=== PATIENT | female | born 1935 | race Caucasian/White ===

== ENCOUNTER 2017-12-10 23:11 | Observation (INO) | payer MEDICARE, OTHER ==
[~2017-12-10] VITALS: Ht 162.6 cm; Wt 51.8 kg
[~2017-12-10 23:11] MED LIST: LORA-447 PO; PANT40TA3 PO; PREG75CA PO; RISE35TA3 PO
[2017-12-10 23:17] VITALS: BP 150/75
--- NOTE | 2017-12-10 23:23 | PCM.EKG ---
[facility] Test Date: 2017-12-10 Test Time: 23:17:06 Pat Name: CLEMENCIA THOMPSON Department: Room: 303 Gender: F Basket Braider: NISREEN : 1935 Requested By: TARYN FARIA Order Number: [id number] Reading MD: Taryn Faria Measurements Intervals [place] Rate: 65 P: 72 UT: 118 QRS: 24 QRSD: 90 T: 48 QT: 398 QTc: 413 Interpretive Statements Normal sinus rhythm Normal ECG No previous ECG available for comparison Electronically Signed On 12-12-2017 7:34:40 CDT by Taryn Faria Please click the below link to view image of tracing.
[2017-12-10] MEDS ORDERED: LIDOCAINE VISCOUS MM STA (23:25)
[2017-12-10] MEDS ORDERED: PROTONIX IV IV STA (23:25)
[2017-12-10] MEDS ORDERED: LIDOCAINE VISCOUS ONE (23:25)
[2017-12-10] MEDS ORDERED: MYLANTA ONE (23:25)
[2017-12-10] MEDS ORDERED: ASPIRIN PO STA (23:25)
[2017-12-10] MEDS ORDERED: MYLANTA PO STA (23:25)
[2017-12-10] MEDS ORDERED: ASPIRIN ONE (23:25)
[2017-12-10] MEDS ORDERED: NS 100ML 100 ML IV ONE (23:28)
[2017-12-10] MEDS ORDERED: PROTONIX IV IV ONE (23:28)
[2017-12-10] MEDS ORDERED: NITROSTAT SL STA (23:28)
[2017-12-10 23:29] LABS: BASOPHIL # 0.1 10^3/uL (0.0-0.1); BASOPHIL % 1.2 % (0.0-0.2); EOSINOPHIL # 0.2 10^3/uL (0.0-0.2); EOSINOPHIL % 2.2 % (0.0-5.0); HEMOGLOBIN 11.9 g/dL (12.0-15.0); LYMPHOCYTES # 2.6 10^3/uL (1.0-4.8); LYMPHOCYTES % 33.5 % (24.0-44.0); MEAN CELL HGB 30.7 pg (26-34); MEAN CELL HGB CONCENTRATION 32.5 g/dL (33-37); MEAN CORP VOLUME 94.3 fL (78-100); MEAN PLATELET VOLUME 12.3 fL (7.8-11.0); MONOCYTES # 0.8 10^3/uL (0.3-0.8); MONOCYTES % 9.9 % (5.0-12.0); NEUTROPHIL # 4.2 10^3/uL (1.8-7.7); NEUTROPHILS % 53.1 % (41.0-85.0); RED CELL DISTRIBUTION WIDTH 12.4 % (11.5-14.5); WHITE BLOOD CELL 7.8 10^3/uL (4.5-11.0)
--- NOTE | 2017-12-10 23:54 | NUR ---
ARRIVAL PATIENT TO ROOM 8, CHIEF COMPLAINT OF CHEST PAIN, DENIES ANY MEDICAL HYSTERY, TAKES ATIVAN FOR ANXIETY, AND LYRICA FOR NERVE PAIN POST BACK SURGERY. STATED THAT CHEST PAIN WAS STABBING TO NURSE, DENIED STABBING CHEST PAIN TO DOCTOR, REPORTED HEAVINESS INSTEAD. ASSESSMENT COMPLETED, PATIENT CONNECTED TO ALL MONITORS, NO S/S OF DISTRESS AT THIS TIME.
[2017-12-11] VITALS (8 sets, daily range): BP systolic 119–137; BP diastolic 58–70
[2017-12-11 00:14] LABS: ALANINE AMINOTRANSFERASE(ML) 20 U/L (12-78); ALKALINE PHOSPHATASE 55 U/L (50-136); ASPARTATE AMINO TRANSFERASE 21 U/L (0-35); CALCIUM 9.2 mg/dL (8.4-10.5); CARBON DIOXIDE 27.6 mmol/L (20.0-32); GLUCOSE 93 mg/dL (70-110)
--- NOTE | 2017-12-11 00:55 | ER.PDOC ---
General Chief Complaint: Chest Pain-Cardiac Nature Stated Complaint: CHEST PAIN Time seen by MD: 23:10 Source: patient, family Exam Limitations: no limitations History of Present Illness Initial Comments pt c/o ant midsternal cp , heavy, since 2129 that is currently 6-7 and 10 at worst asstd w/ sob and sl nausea. Pt took ativan at 2200 and Lyrica 2100 w/o relief. Pt has a hx of HH and recent may 2017 neg cath by her report, but is tx 'd for anxiety and p. neuropathy. Timing/Duration: 1-3 hours Severity/Quality: moderate Radiation: no radiation Activities at Onset: none Prior CP/Workup: Cardiac Cath Modifying Factors: other (none) Nitro Today/Relief: No Nitro Taken Today Aspirin Today: No Aspirin Today Associated Symptoms: nausea/vomiting Prior symptoms/Treatment: Similar symptoms previous, Treated by Doctor Allergies: Coded Allergies: No Known Allergies (Unverified , 05/03/15) Home Meds Reported Medications Pregabalin (LYRICA) 75 Mg Capsule, 75 MG PO HS, CAPSULE 05/03/15 Lorazepam (ATIVAN) 0.5 Mg Tablet, 0.5 MG PO TID, TABLET 05/03/15 Past Medical History Medical History: no pertinent history Surgical History: appendectomy, back, hysterectomy LMP (females 10-50): hysterectomy Social History Smoking: non-smoker Alcohol Use: none Drug Use: none Reviewed Nursing Reviewed: Vital Signs, Abn. Noted, Nursing Assessment Constitutional: no symptoms reported EENTM: no symptoms reported Respiratory: denies cough, denies orthopnea, shortness of breath, denies wheezing Cardiovascular: chest pain, denies edema, denies irregular heart rate, denies lightheadedness, denies syncope Gastrointestinal: denies no symptoms reported, denies see HPI, denies abdomen distended, denies abdominal pain, denies blood streaked bowels, denies constipated, denies diarrhea, denies difficulty swallowing, denies nausea, denies poor appetite, denies poor fluid intake, denies rectal bleeding, denies vomiting, denies other Genitourinary: denies no symptoms reported, denies see HPI, denies burning, denies dysuria, denies discharge, denies frequency, denies flank pain, denies hematuria, denies incontinence, denies pain, denies urgency, denies other Musculoskeletal: denies no symptoms reported, denies see HPI, denies back pain , denies gout, denies joint pain, denies joint swelling, denies muscle pain, denies muscle stiffness, denies neck pain, denies other Skin: denies no symptoms reported, denies see HPI, denies change in color, denies change in hair/nails, denies dryness, denies lesions, denies lumps, denies rash, denies other All Other Systems: Reviewed and Negative Physical Exam General Appearance: No Apparent Distress, WD/WN, Anxious HEENT: PERRL/EOMI, Normal ENT Inspection, TMs Normal, Pharynx Normal Neck: Non-Tender, Full Range of Motion, Supple, Normal Inspection Respiratory: chest non-tender, lungs clear, normal breath sounds, no respiratory distress, no accessory muscle use Cardiovascular: Normal Peripheral Pulses, Regular Rate, Rhythm, No Edema, No Gallop, No JVD, No Murmur Gastrointestinal: Normal Bowel Sounds, No Organomegaly, No Pulsatile Mass, Non Tender, Soft Rectal: Normal Exam Extremities: Normal Range of Motion, Non-Tender, Normal Inspection, No Pedal Edema, No Calf Tenderness, Normal Capillary Refill Neurologic/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 NML as Tested, No Motor/Sensory Deficits, Alert, Normal Mood/Affect, Oriented x 3 Skin: Normal Color, Warm/Dry Results/Orders Results/Orders Laboratory Tests Test 12/10/17 23:20 White Blood Count 7.8 10^3/uL (4.5-11.0) Red Blood Count 3.88 10^6/uL (4.00-5.20) Hemoglobin 11.9 g/dL (12.0-15.0) Hematocrit 36.6 % (36.0-46.0) Mean Corpuscular Volume 94.3 fL (78-100) Mean Corpuscular Hemoglobin 30.7 pg (26-34) Mean Corpuscular Hemoglobin Concent 32.5 g/dL (33-37) Red Cell Distribution Width 12.4 % (11.5-14.5) Platelet Count 199 10^3/uL (150-400) Mean Platelet Volume 12.3 fL (7.8-11.0) Neutrophils (%) (Auto) 53.1 % (41.0-85.0) Lymphocytes (%) (Auto) 33.5 % (24.0-44.0) Monocytes (%) (Auto) 9.9 % (5.0-12.0) Neutrophils # (Auto) 4.2 10^3/uL (1.8-7.7) Lymphocytes # (Auto) 2.6 10^3/uL (1.0-4.8) Monocytes # (Auto) 0.8 10^3/uL (0.3-0.8) Absolute Immature Granulocyte (auto 0.01 10^3 u/L (0-2) Eosinophils % 2.2 % (0.0-5.0) Basophils % 1.2 % (0.0-0.2) Basophils # 0.1 10^3/uL (0.0-0.1) Eosinophil Count 0.2 10^3/uL (0.0-0.2) Prothrombin Time 9.6 SEC (9.8-11.9) Prothrombin Time INR (Non-Therap) 1.0 D-Dimer 0.33 mg/L (0.19-0.49) Sodium Level 141 mmol/L (132-145) Potassium Level 4.0 mmol/L (3.6-5.2) Chloride Level 104.0 mmol/L (96-109) Carbon Dioxide Level 27.6 mmol/L (20.0-32) Anion Gap 13.4 Blood Urea Nitrogen 22 mg/dL (7-18) Creatinine 0.80 mg/dL (0.59-1.40) Estimated GFR () 83.5 (>/=60) BUN/Creatinine Ratio 27.0 Glucose Level 93 mg/dL (70-110) Calcium Level 9.2 mg/dL (8.4-10.5) Total Bilirubin 0.2 mg/dL (0.2-1.0) Aspartate Amino Transf (AST/SGOT) 21 U/L (0-35) Alanine Aminotransferase (ALT/SGPT) 20 U/L (12-78) Alkaline Phosphatase 55 U/L (50-136) Total Creatine Kinase 56 U/L (26-192) Creatine Kinase MB 0.9 ng/mL (0.5-3.6) Troponin I < 0.02 ng/mL (0.00-0.05) Pro-B-Type Natriuretic Peptide 175 pg/mL (0-450) Total Protein 7.0 g/dL (6.4-8.2) Albumin 3.6 g/dL (3.4-5.0) Globulin 3.4 Percent Immature Gran (Cell Imm) 0.10 % (0.00-0.50) Helicobacter pylori Screen NEGATIVE (NEGATIVE) Administered Medications Medications (Trade) Dose Ordered Sig/Darion Route PRN Reason Start Time Stop Time Status Last Admin Dose Admin Aspirin (Aspirin) 325 mg STAT STAT PO 12/10/17 23:25 12/10/17 23:28 DC 12/10/17 23:45 Pantoprazole Sodium (Protonix Iv) 40 mg STAT STAT IV 12/10/17 23:25 12/10/17 23:28 DC 12/10/17 23:44 Lidocaine HCl (Lidocaine Viscous) 15 ml STAT STAT MM 12/10/17 23:25 12/10/17 23:28 DC 12/10/17 23:44 Nitroglycerin (Nitrostat) 0.4 mg STAT STAT SL 12/10/17 23:28 12/10/17 23:31 DC 12/10/17 23:47 Progress Progress pt unsure that GI cocktail or SLN really helped her but she feels btter however isn't pain free. Case disc w/ Dr. Zayas,who will review her cath and call back 0030 EKG/XRAY/CT/US EKG: NSR EKG Comments: nl ekg XRAY: chest XRAY Comments: nad Departure Time of Disposition: 01:10 Disposition: 01 HOME, SELF-CARE Impression: Primary Impression: Chest pain Additional Impressions: Anxiety Hiatal hernia Condition: Stable Referrals: BERNADETTE JIN DIRECTOR [employer] (PCP) PRIMARY CARE PROVIDER Duration or Time Spent with Pa: 45 Problem Qualifiers Primary Impression: Chest pain Chest pain type: unspecified Qualified Codes: R07.9 - Chest pain, unspecified TARYN FARIA MD Dec 11, 2017 00:55
[2017-12-11] MEDS ORDERED: SUBLIMAZE IV STA (01:11)
[2017-12-11] MEDS ORDERED: SUBLIMAZE ONE ×2 (01:19→12:16)
[2017-12-11] MEDS ORDERED: IBAN150T PO (01:51)
--- NOTE | 2017-12-11 01:55 | NUR ---
Patient back from labor operator. GCS 15, no c/o pain, site intact with no concerns. Vitals as recorded.
--- NOTE | 2017-12-11 02:18 | DIREP ---
PROCEDURE:CHEST 1 VIEW COMPARISON:[facility], CR, XRAY CHEST SINGLE VW, 05/03/2015, 10:54 AM. INDICATIONS:CHEST PAIN FINDINGS: LUNGS/PLEURA:No significant pulmonary parenchymal abnormalities. No effusions. VASCULATURE:Normal. Unremarkable pulmonary vasculature. CARDIAC:Normal. No cardiac silhouette abnormality or cardiomegaly. Mildly tortuous aorta. MEDIASTINUM:Normal. No visible mass or adenopathy. BONES:Normal. No fracture or visible bony lesion. OTHER:Negative. CONCLUSION:No acute cardiopulmonary abnormalities. Dictated by: Tayo Villegas M.D. on 12/11/2017 at 02:17 AM
--- NOTE | 2017-12-11 05:08 | PCM.EKG ---
[facility] Test Date: 2017-12-11 Test Time: 05:10:37 Pat Name: CLEMENCIA THOMPSON Department: Room: 303 Gender: F Tool Or Die Drawing Checker: NISREEN : 1935 Requested By: TARYN FARIA Order Number: [id number] Reading MD: Mansi Zayas Measurements Intervals [place] Rate: 65 P: 57 MD: 142 QRS: 22 QRSD: 96 T: 43 QT: 398 QTc: 413 Interpretive Statements Normal sinus rhythm Normal ECG No previous ECG available for comparison Electronically Signed On 12-12-2017 10:52:14 CDT by Mansi Zayas Please click the below link to view image of tracing.
[2017-12-11] MEDS ORDERED: ZOFRAN IV PRN (08:00)
[2017-12-11] MEDS ORDERED: TYLENOL PO PRN (08:00)
--- NOTE | 2017-12-11 08:17 | NUR ---
Patient up in room doing am cares per self with spouse in room. Denies pain at this time. States she would prefer to take her scheduled Ativan at 10am.
[2017-12-11] MEDS: ATIVAN PO SCH ×2 (09:00→15:58)
--- NOTE | 2017-12-11 09:15 | NUR ---
DISCHARGE PLAN CM VISITED WITH PATIENT ABOUT DISCHARGE PLAN AND NEEDS. PATIENT LIVES AT HOME WITH HER AND IS INDEPENDENT WITH ALL ADL'S. SHE DENIES NEED FOR ANY DME, O2, OR HOME HEALTH AT THIS TIME. DISCHARGE GOAL IS TO DISCHARGE HOME WITH HER . WILL CONTINUE TO FOLLOW DISCHARGE NEEDS.
--- NOTE | 2017-12-11 10:26 | NUR ---
Patient gave self her own Ativan. Dr Enriquez aware and states okay for patient to give self on home med while still OBS. Also patient states she is unable to take the generic brand of Ativan which was her reason for taking her own med.
[2017-12-11] MEDS ORDERED: VERSED ONE (12:16)
[2017-12-11] MEDS ORDERED: XYLOCAINE ONE (12:16)
[2017-12-11] MEDS ORDERED: NS 1000ML 1,000 ML ONE ×2 (12:16→12:53)
[2017-12-11] MEDS ORDERED: HEPARIN ONE (12:17)
--- NOTE | 2017-12-11 12:42 | NUR ---
Report given to skilled laborer nurse at bedside with SBAR patient down to skilled laborer at this time
--- NOTE | 2017-12-11 15:08 | NUR ---
Dr Enriquez to bedside to discuss discharge for this evening with patient and spouse.
--- NOTE | 2017-12-11 16:17 | DIREP ---
PROCEDURE:US ABDOMEN LIMITED(SINGLE ORGAN-QUAD) COMPARISON:[facility], US, US ABDOMEN LIMITED(SINGLE ORGAN-QUAD), 05/04/2015, 10:01 AM. INDICATIONS:gb disease FINDINGS: CBD:0.7 cm GALLBLADDER:0.3 cm PANCREAS:Not evaluated. LIVER:Not evaluated. GALLBLADDER:Normal appearing gallbladder without evidence for gallbladder wall thickening or pericholecystic fluid. BILIARY:There is no biliary ductal dilatation. RIGHT KIDNEY:Not evaluated. OTHER:Negative. No ascites is identified. CONCLUSION:No evidence for cholelithiasis and cholecystitis. Non evaluation of the pancreas and the liver. Dictated by: MONIK Physician on 12/11/2017 at 04:14 PM ld
--- NOTE | 2017-12-11 19:12 | NUR ---
DISCHARGE PT EDUCATED AND DISCHARGED, VERBALIZED UNDERSTANDING. NO S/S OF DISTRESS NOTED. PT OFF OF FLOOR.
--- NOTE | 2017-12-11 19:50 | CCRH ---
DATE OF SERVICE: 12/11/2017 PRECATHETERIZATION DIAGNOSES: New onset unstable angina with a 1.5 of chest pain, diaphoresis, responds to nitro. POSTCATHETERIZATION DIAGNOSES: Long left main, fully patent. LAD type 3 with some tortuosity, fully patent. Diagonal branch, fully patent. Circumflex, small vessel, fully patent. Dominant right coronary artery, fully patent. Normal LV contractility, ejection fraction of 60%. ANESTHESIA: 2% lidocaine. PREOPERATIVE MEDICATIONS: Versed 2 mg IV, fentanyl 25 mcg IV. ANTICOAGULATION: Heparin 2000 units intra-arterially, 2000 units in the flush, 1000 units in the dye solution. Dye is Omnipaque. Total amount 77 mL. CATHETERS: JL4, 5-Belgian JR4 5-Belgian, 5-Belgian angled pigtail catheter. ARTERIAL TIME: 8 minutes. FLUOROSCOPY TIME: 2.7 minutes. PROCEDURES: Left heart catheterization, bilateral selective coronary arteriography, left ventriculography via right femoral Jo-Ann approach. NARRATION OF PROCEDURE: Under local anesthesia, the right femoral artery was punctured using open needle technique, and 6-Belgian Cordis sheath was introduced into the femoral artery. Side port of the sheath was used for continuous monitoring of femoral arterial pressure. Subsequently, JL4 5-Belgian left Jo-Ann coronary catheter was introduced over a guidewire and navigated across the ascending aorta, and selective cannulation of left coronary artery was achieved. Left coronary arteriography was performed in AURY and WILKINSON projections using craniocaudal angulations for adequate visualization of all the branches. This catheter was then exchanged with JR4 5-Belgian right coronary catheter which was manipulated, and selective cannulation of right coronary artery was achieved. Right coronary arteriography was performed in AURY and AP projections. Right coronary catheter was then exchanged with 5-Belgian angled pigtail catheter which was navigated across the aortic valve. Hemodynamics were measured, and left ventriculography was performed in 30-degree WILKINSON projection using 35 mL of Isovue at 12 mL/sec at 600 PSI. Patient tolerated the procedure well. HEMODYNAMICS: LVEDP is 12-15 mm, LV pressure 135/15, femoral artery pressure 148/54 with a mean of 75. No gradient across the aorta, normal. FINAL CONCLUSION: Normal coronary angiogram, normal LV function, Angio-Seal deployed. Hemostasis achieved. RECOMMENDATIONS: Gallbladder sonogram, history of gallbladder sludge, EGD in the morning and personal noncardiac causes of chest pain. Mansi Zayas MD DR: FIDENCIO/jay JOB# [id number]
[2017-12-11] MEDS ORDERED: LYRICA PO SCH (21:00)
--- NOTE | 2017-12-12 08:40 | CNH ---
DATE OF CONSULTATION: 12/11/2017 CHIEF COMPLAINT: Chest pain. PRIMARY PHYSICIAN: Dr. Enriquez. HISTORY OF PRESENT ILLNESS: The patient is an 82-year-old female who I had seen in 2015 and had a catheterization, which was normal, had gallbladder sludge and she is primarily Dr. Knutson's patient. Tayo Joshi is a nurse practitioner. She came with history of chest heaviness, tightness, lasting for an hour and hour and a half and this was different from her usual hiatus hernia or indigestion. She did have some indigestion and she has not had her gallbladder taken out and pain was relieved with nitro and was given aspirin and her EKG was normal, but she has had on and off episodes of chest heaviness, tightness along with shortness of breath, hence cardiac consultation seeked for an evaluation. ALLERGIES: NONE KNOWN. MEDICATIONS: She has been on a Boniva 150 mg once a day, Ativan 0.5 mg 3 times a day and Lyrica 75 mg at bedtime. PAST MEDICAL HISTORY: History of chest pains in the past and catheterization showed no flow obstruction, no flow obstructive coronary artery disease in 2014 and history of degenerative joint disease, has a history suggestive of possible early Raynaud's phenomenon and has gallbladder sludge and no operation was done. SOCIAL HISTORY: Nonsmoker, no ethanol abuse. FAMILY HISTORY: Positive for cancer and history of heart disease does run in the family. PHYSICAL EXAMINATION: GENERAL: She is alert, awake, oriented, leant and asthenically built. VITAL SIGNS: Weight 51 kilograms and, BMI 19.6 and 162 cm tall and pulse is about 75, blood pressure was 137/66 with a respiration of 16, and 94 saturation. HEENT: Unremarkable. NECK: No JVD, no carotid bruits. CHEST: Thin chest wall. LUNGS: Clear. HEART: Sounds S1, S2 normal. ABDOMEN: Scaphoid, no organomegaly, no tenderness is noted. EXTREMITIES: Distal pulses fairly well felt. NEUROLOGIC: Intact. IMAGING STUDIES: EKG: Regular sinus rhythm. LABORATORY DATA: Troponins are negative. IMPRESSION: Clinically, history suggestive of possible cardiac chest pain with chest heaviness, tightness, relieved by nitroglycerin and the pain was at rest, would be considered as angina at rest and since her catheterization is 3 years old and she is 82 years old, at the present time one needs to exclude possibility of flow obstructive coronary artery disease before one can pursue with EGD and a repeat gallbladder sonogram to assess her gallbladder status and if she requires surgery, one needs to be sure that she does not have any significant flow obstructive coronary artery disease. We will do cardiac catheterization on 12/11/2017. Thank you very much for this consultation. Laxmichand MD Chana DR: FIDENCIO/jay JOB# [id number]
--- NOTE | 2017-12-12 19:29 | HPH ---
ADMIT DATE: 12/11/2017 ADMISSION HISTORY AND PHYSICAL AND DISCHARGE SUMMARY CHIEF COMPLAINT: Initially was chest pain. HISTORY OF PRESENT ILLNESS: This patient is an 82-year-old woman with a past medical history significant for anxiety, neuropathy who presented to ER with complaints of chest pain. Initial workup in ER was negative for acute cardiac ischemia. Cardiology was consulted. She was consented and had a heart catheterization, which did not show any acute ischemia. PAST MEDICAL HISTORY: Includes peripheral neuropathy, restless leg syndrome and anxiety. PAST SURGICAL HISTORY: She had rotator cuff surgery, appendectomy, back surgery and hysterectomy. ALLERGIES: NO KNOWN DRUG ALLERGIES. HOME MEDICATIONS: List includes Boniva 150 mg p.o. monthly, lorazepam 0.5 mg 3 times a day and Lyrica 75 mg at night. SOCIAL HISTORY: She does live at home. No alcohol, tobacco or illicit drug use history. FAMILY HISTORY: Negative for early coronary artery disease or diabetes. REVIEW OF SYSTEMS: CARDIAC: Complaints of some chest pain, no shortness of breath or dyspnea on exertion. PULMONARY: No cough, sputum production or pleuritic chest pain. GASTROINTESTINAL: No nausea, vomiting, diarrhea or constipation. All else negative in 10 point review of system except as in HPI. PHYSICAL EXAMINATION: VITAL SIGNS: Upon arrival to the ER, height 162.5 cm, weight 51.8 kg, BMI 19.6, temperature 97.8, pulse 64, respiratory rate 16, blood pressure 127/64 and O2 saturation 96% on room air. GENERAL: She is alert, in no acute distress at time of exam. HEENT: Pupils equal, round, reactive to light. Sclerae are anicteric. Oropharynx is clear. Mucous membranes are moist. NECK: Supple, no lymphadenopathy. CARDIOVASCULAR: At time of exam is regular rate and rhythm. LUNGS: Clear bilaterally. No wheezing. ABDOMEN: Soft. Bowel sounds are present, nontender to palpation. EXTREMITIES: No cyanosis, clubbing or significant edema. NEUROLOGIC: Grossly nonfocal. LABORATORY DATA: CBC: White count 7.8, hemoglobin 11.9 and platelets 199. Differential: 53% neutrophils, 33% lymphocytes, 10% monocytes. Sodium 141, potassium 4.0, chloride 104, CO2 is 27, BUN 22, creatinine 0.8, glucose is 93, calcium is 9.2, total bilirubin 0.2, AST 21, ALT is 20, alkaline phosphatase 55, total CK 56, CK-MB is 0.9, troponin I is less than 0.02 x 3, proBNP 175, total protein 7.0 and albumin 3.6. H. pylori is negative. IMAGING STUDIES: Initial chest x-ray in the ER was no acute abnormalities. She had abdominal ultrasound performed that did not show any gallbladder disease. ASSESSMENT AND PLAN: The patient is an 82-year-old woman with complaints of chest pain with a history of restless leg syndrome and anxiety. 1. Cardiovascular: She had heart catheterization, which did not show any signs of pathology that required intervention. 2. She has abdominal ultrasound, which did not reveal any significant gallbladder disease. 3. Continue her current psychiatric medications. 4. Routine discharge home. DISCHARGE DIET: Will be as tolerated. DISCHARGE FOLLOWUP: With General Surgery to schedule possible EGD. DISCHARGE ACTIVITY: As tolerated. DISCHARGE MEDICATIONS: Resume her previous medications. Discharge plans were discussed with the patient. She is her own decision maker. She does understand and concur with plans. Time spent on history and physical and discharge is 45 minutes on 12/11/2017. Jabier Enriquez MD DR: FERN/jay JOB# [id number]
== END 2017-12-11 19:12 | disposition home or self-care (01) ==
LOC: ER 23:11 → MS 12-11 01:16
PROVIDERS: ADMIT Internal Medicine; ATTEND Internal Medicine
DX: I20.0 Unstable angina (principal); R07.9 Chest pain, unspecified; R61 Generalized hyperhidrosis; G25.81 Restless legs syndrome; G62.9 Polyneuropathy, unspecified; F41.9 Anxiety disorder, unspecified; Z79.899 Other long term (current) drug therapy; Z90.710 Acquired absence of both cervix and uterus; Z98.890 Other specified postprocedural states
CPT/HCPCS: 36415 ×2; 71045; 76705; 80053; 82550; 82553; 83880; 84484 ×3; 85025; 85379; 85610; 86677; 93005 ×2; 93458; 96374; 96375; 99152; 99153; C1760; C1887; C9113; G0378 ×18; J1644 ×2; J2250; J3010 ×2; J3490; J7030 ×2; J7050; Q9967; C1894

== ENCOUNTER → 2017-12-30 | Outpatient (CLI) | payer MEDICARE, OTHER ==
[~2017-12-30] MED LIST changes: +IBAN150T PO
[2017-12-30 11:16] LABS: BASOPHIL # 0.1 10^3/uL (0.0-0.1); BASOPHIL % 0.9 % (0.0-0.2); EOSINOPHIL # 0.1 10^3/uL (0.0-0.2); EOSINOPHIL % 1.6 % (0.0-5.0); HEMOGLOBIN 12.8 g/dL (12.0-15.0); MEAN CELL HGB 30.6 pg (26-34); MEAN CELL HGB CONCENTRATION 31.9 g/dL (33-37); MEAN CORP VOLUME 95.9 fL (78-100); MEAN PLATELET VOLUME 11.8 fL (7.8-11.0); MONOCYTES # 0.6 10^3/uL (0.3-0.8); MONOCYTES % 7.3 % (5.0-12.0); NEUTROPHIL # 5.2 10^3/uL (1.8-7.7); NEUTROPHILS % 65.1 % (41.0-85.0); RED CELL DISTRIBUTION WIDTH 12.9 % (11.5-14.5)
[2017-12-30 11:32] LABS: CALCIUM 9.9 mg/dL (8.4-10.5); CARBON DIOXIDE 29.1 mmol/L (20.0-32)
== END | disposition home or self-care (01) ==
LOC: LAB 10:52
PROVIDERS: ATTEND Internal Medicine Rheumatology
DX: M15.0 Primary generalized (osteo)arthritis (principal); R76.8 Other specified abnormal immunological findings in serum
CPT/HCPCS: 36415; 80053; 85025; 85651; 86140

== ENCOUNTER 2018-04-13 21:13 | Emergency (ER) | payer MEDICARE, OTHER ==
[~2018-04-13] VITALS: Ht 121.9 cm; Wt 49.4 kg
[2018-04-13 21:15] VITALS: BP 147/59
--- NOTE | 2018-04-13 21:15 | NUR ---
ARRIVAL PT TO ER #2 VIA WC FOR C/O CHEST PAIN SINCE 1800. DENIES TAKING ASPIRIN OR NITRO AT HOME, STATES TOOK ATIVAN AND HS LYRICA. DENIES SHORTNESS OF BREATH. PT NOTED TO BE ANXIOUS AND IN MILD DISTRESS. PT PLACED IN GOWN UPON ARRIVAL TO ULISES GUSMAN RT AT BEDSIDE TO OBTAIN EKG. LEASE OUT MAN APPLIED, VITALS OBTAINED. SL PLACED INTO RIGHT FA. EDP MADE AWARE OF PT ARRIVAL.
--- NOTE | 2018-04-13 21:26 | PCM.EKG ---
[facility] Test Date: 2018-04-13 Test Time: 21:21:38 Pat Name: CLEMENCIA THOMPSON Department: Room: Gender: F Offset Second Press Operator: NISREEN : 1935 Requested By: CHRISTIN GURROLA Order Number: [id number] Reading MD: Christin GURROLA Measurements Intervals [place] Rate: 77 P: 73 IL: 136 QRS: 37 QRSD: 94 T: 56 QT: 388 QTc: 439 Interpretive Statements Normal sinus rhythm Normal ECG Compared to ECG 12/11/2017 05:10:37 No significant changes Electronically Signed On 04-14-2018 6:51:43 CDT by Christin GURROLA Please click the below link to view image of tracing.
[2018-04-13] MEDS ORDERED: ASPIRIN ONE (21:29)
[2018-04-13] MEDS ORDERED: NITROSTAT SL PRN (21:30)
[2018-04-13] MEDS ORDERED: ASPIRIN PO STA (21:30)
--- NOTE | 2018-04-13 21:31 | NUR ---
CHEST XRAY WALE STRAIGHTEDGE MAN AT BEDSIDE TO OBTAIN CHEST XRAY
--- NOTE | 2018-04-13 21:34 | ER.PDOC ---
General Chief Complaint: Chest Pain-Cardiac Nature Stated Complaint: CHEST PAIN Time seen by MD: 21:32 Source: patient Exam Limitations: no limitations History of Present Illness Initial Comments Chest pain this evening and took Ativan. Timing/Duration: 1-3 hours Severity/Quality: moderate Radiation: arms Activities at Onset: rest Prior CP/Workup: Cardiac Cath (4 Months ago) Nitro Today/Relief: 0.4 mg x 1 Aspirin Today: 325 mg x 1, Provided By ED Associated Symptoms: denies symptoms Prior symptoms/Treatment: Similar symptoms previous Allergies: Coded Allergies: tramadol (Verified Allergy, Severe, Nausea, 04/13/18) Antihistamines - Alkylamine (Unverified Allergy, Unknown, MAKE FEEL ILL, ) Home Meds Reported Medications Ibandronate Sodium (BONIVA) 150 Mg Tablet, 150 MG PO monthly, TABLET 12/11/17 Pregabalin (LYRICA) 75 Mg Capsule, 75 MG PO HS, CAPSULE 05/03/15 Lorazepam (ATIVAN) 0.5 Mg Tablet, 0.5 MG PO TID, TABLET 05/03/15 Past Medical History Medical History: no pertinent history, other Surgical History: back, hysterectomy, tonsillectomy LMP (females 10-50): hysterectomy Social History Smoking: non-smoker Alcohol Use: none Drug Use: none Constitutional: no symptoms reported EENTM: no symptoms reported Respiratory: no symptoms reported Cardiovascular: see HPI Gastrointestinal: no symptoms reported All Other Systems: Reviewed and Negative Physical Exam General Appearance: No Apparent Distress, WD/WN HEENT: PERRL/EOMI, Normal ENT Inspection, TMs Normal, Pharynx Normal Neck: Non-Tender, Full Range of Motion, Supple, Normal Inspection Respiratory: chest non-tender, lungs clear, normal breath sounds, no respiratory distress, no accessory muscle use Cardiovascular: Normal Peripheral Pulses, Regular Rate, Rhythm, No Edema, No Gallop, No JVD, No Murmur Extremities: Normal Range of Motion, Non-Tender, Normal Inspection, No Pedal Edema, No Calf Tenderness, Normal Capillary Refill Neurologic/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 Zayas and patient okay to go home and follow up with him in the office. Patient had Normal Cardiac cath and GB sonogram on December 11 of this year. Her pain has resolved and she is feeling better. Gave \her the option of observing her but she declined. Departure Time of Disposition: 22:18 Disposition: 01 HOME, SELF-CARE Impression: Primary Impression: Nonspecific chest pain Additional Impression: Anxiety Condition: Improved Referrals: BERNADETTE JIN TRAVEL PT (PCP) PRIMARY CARE PROVIDER Additional Instructions: F/U with Dr. Zayas tomorrow. Call for appointment time. Continue home medications. Duration or Time Spent with Pa: 60 mins Problem Qualifiers CHRISTIN GURROLA MD Apr 13, 2018 21:34
[2018-04-13 21:35] VITALS: BP 141/99
[2018-04-13 21:38] LABS: BASOPHIL # 0.1 10^3/uL (0.0-0.1); BASOPHIL % 0.8 % (0.0-0.2); EOSINOPHIL # 0.2 10^3/uL (0.0-0.2); EOSINOPHIL % 2.4 % (0.0-5.0); HEMOGLOBIN 12.6 g/dL (12.0-15.0); LYMPHOCYTES # 2.8 10^3/uL (1.0-4.8); LYMPHOCYTES % 37.5 % (24.0-44.0); MEAN CELL HGB 30.7 pg (26-34); MEAN CELL HGB CONCENTRATION 32.6 g/dL (33-37); MEAN CORP VOLUME 94.1 fL (78-100); MEAN PLATELET VOLUME 11.6 fL (7.8-11.0); MONOCYTES # 0.7 10^3/uL (0.3-0.8); MONOCYTES % 8.9 % (5.0-12.0); NEUTROPHIL # 3.8 10^3/uL (1.8-7.7); NEUTROPHILS % 50.3 % (41.0-85.0); RED CELL DISTRIBUTION WIDTH 12.6 % (11.5-14.5); WHITE BLOOD CELL 7.5 10^3/uL (4.5-11.0)
[2018-04-13 21:45] VITALS: BP 109/57
--- NOTE | 2018-04-13 21:45 | DIREP ---
PROCEDURE:CHEST 1 VIEW COMPARISON:[facility], CR, XRAY CHEST SINGLE VW, 12/10/2017, 11:22 PM. INDICATIONS:Chest pain FINDINGS: LUNGS/PLEURA:No significant pulmonary parenchymal abnormalities. No effusions. VASCULATURE:Normal. Unremarkable pulmonary vasculature. CARDIAC:Normal. No cardiac silhouette abnormality or cardiomegaly. MEDIASTINUM:Normal. No visible mass or adenopathy. BONES:Normal. No fracture or visible bony lesion. OTHER:Negative. CONCLUSION:No acute cardiopulmonary process. Dictated by: Sebastián Gomez M.D. on 04/13/2018 at 09:44 PM
[2018-04-13 22:00] VITALS: BP 102/50
[2018-04-13 22:05] LABS: ALANINE AMINOTRANSFERASE(ML) 25 U/L (12-78); ALKALINE PHOSPHATASE 61 U/L (50-136); ASPARTATE AMINO TRANSFERASE 21 U/L (0-35); CALCIUM 9.3 mg/dL (8.4-10.5); CARBON DIOXIDE 32.1 mmol/L (20.0-32); GLUCOSE 116 mg/dL (70-110)
--- NOTE | 2018-04-13 22:10 | NUR ---
DR REYNOLDS NOTIFIED OF PATIENT CONDITION, RECOMMENDED DISCHARGE HOME WITH FOLLOW UP TO DR. CAIN FOR EGD.
[2018-04-13 22:15] VITALS: BP 112/56
[2018-04-13 22:36] VITALS: BP 112/56
== END 2018-04-13 22:34 | disposition home or self-care (01) ==
LOC: ER 21:13
DX: F41.9 Anxiety disorder, unspecified (principal); Z88.8 Allergy status to other drugs, medicaments and biological substances; Z88.6 Allergy status to analgesic agent; Z79.899 Other long term (current) drug therapy; Z90.49 Acquired absence of other specified parts of digestive tract; Z90.710 Acquired absence of both cervix and uterus; Z95.818 Presence of other cardiac implants and grafts
CPT/HCPCS: 36415; 71045; 80053; 82550; 82553; 83880; 84484; 85025; 85379; 85610; 85730; 93005; 99285

== ENCOUNTER 2018-05-07 02:44 | Day surgery (SDC) | payer MEDICARE, OTHER ==
[2018-05-05 14:58] VITALS: BP 142/68
[2018-05-05 15:28] LABS: BASOPHIL # 0.1 10^3/uL (0.0-0.1); BASOPHIL % 0.9 % (0.0-0.2); EOSINOPHIL # 0.1 10^3/uL (0.0-0.2); EOSINOPHIL % 1.7 % (0.0-5.0); HEMOGLOBIN 12.9 g/dL (12.0-15.0); LYMPHOCYTES # 2.3 10^3/uL (1.0-4.8); LYMPHOCYTES % 34.2 % (24.0-44.0); MEAN CELL HGB 30.9 pg (26-34); MEAN CELL HGB CONCENTRATION 32.9 g/dL (33-37); MEAN CORP VOLUME 93.8 fL (78-100); MEAN PLATELET VOLUME 11.9 fL (7.8-11.0); MONOCYTES # 0.6 10^3/uL (0.3-0.8); MONOCYTES % 8.7 % (5.0-12.0); NEUTROPHIL # 3.6 10^3/uL (1.8-7.7); NEUTROPHILS % 54.3 % (41.0-85.0); RED CELL DISTRIBUTION WIDTH 12.5 % (11.5-14.5); WHITE BLOOD CELL 6.6 10^3/uL (4.5-11.0)
[~2018-05-07] VITALS: Ht 160 cm; Wt 49.0 kg
[~2018-05-07 02:44] MED LIST changes: +ASCO-72 PO; +CALC-115 PO; +CHOL200074 PO; +CYAN10005 PO; +FAMO-75 PO; +FLAX100016 PO; +MULT1TAB52 PO; +VITA100T7 PO; +[UNRECOGNIZED DRUG - CODE] PO
[2018-05-07] MEDS ORDERED: LACTATED RINGERS 1,000 ML ONE (05:37)
[2018-05-07] MEDS ORDERED: DIPRIVAN IV ONE ×2 (06:35→07:13)
[2018-05-07] MEDS ORDERED: LIDOCAINE 2% VIAL ONE ×2 (06:35→07:13)
[2018-05-07 06:52] VITALS: BP 136/70
[2018-05-07] MEDS ORDERED: LACTATED RINGERS 1,000 ML IV SCH (07:00)
[2018-05-07] MEDS ORDERED: SUBLIMAZE ONE (07:13)
[2018-05-07 09:00] VITALS: BP 123/57
[2018-05-07 09:15] VITALS: BP 121/63
[2018-05-07 09:30] VITALS: BP 125/74
[2018-05-07 09:45] VITALS: BP_SYST 74
--- NOTE | 2018-05-07 12:09 | OPH ---
DATE OF SURGERY: 05/07/2018 PREOPERATIVE DIAGNOSES: History of dysphagia and abdominal pain. POSTOPERATIVE DIAGNOSES: Gastritis, hiatal hernia. SURGEON: Logan Zamudio DO DONOR RELATIONS ASSOCIATE: OR staff. ANESTHESIA: Total intravenous anesthesia by Rachel Melissa CRNA. PROCEDURE PERFORMED: Esophagogastroduodenoscopy with biopsy. SPECIMENS: Gastric mucosa to path. ESTIMATED BLOOD LOSS: 5 mL. COUNTS: At the completion of the case, the counts were correct per OR staff. DESCRIPTION OF PROCEDURE: The patient is a very pleasant 82-year-old female known from previous evaluation. Prior to procedure, informed consent was obtained. At time of procedure, she was taken to the operative suite and placed in the supine position. After timeout was completed, he was placed in left lateral recumbent position. After adequate sedation, esophagogastroduodenoscope was advanced transorally with pneumoinsufflation distally in second portion of duodenum. The duodenum was visualized. Camera was slowly withdrawn to facilitate visualization of the duodenal bulb and the pylorus. Pylorus shows gastritis. Biopsies were obtained. Retroflexed maneuver was performed. A small sliding type hiatal hernia is identified. Camera was reduced, stomach was decompressed. Scope was slowly withdrawn. Distal esophagus shows minimal changes, no significant esophagitis. Mid and proximal esophagus were grossly normal. Vocal cords were minimally visualized. That portion seen within normal limits. Camera was removed. Procedure was discontinued. The patient tolerated this procedure well. There were no acute complications noted. Logan Zamudio DO DR: BHARAT/jay JOB# [id number] CC: Tayo Joshi NP
== END 2018-05-07 09:55 | disposition home or self-care (01) ==
LOC: SDC 02:44
PROVIDERS: ATTEND Surgery
DX: K29.50 Unspecified chronic gastritis without bleeding (principal); K21.9 Gastro-esophageal reflux disease without esophagitis; F41.8 Other specified anxiety disorders; G89.29 Other chronic pain; M54.5 Low back pain; E78.00 Pure hypercholesterolemia, unspecified; M81.0 Age-related osteoporosis without current pathological fracture; Z90.710 Acquired absence of both cervix and uterus; Z98.41 Cataract extraction status, right eye; Z96.1 Presence of intraocular lens; Z98.890 Other specified postprocedural states; Z79.899 Other long term (current) drug therapy; Z88.1 Allergy status to other antibiotic agents; Z88.8 Allergy status to other drugs, medicaments and biological substances; Z90.49 Acquired absence of other specified parts of digestive tract; Z95.9 Presence of cardiac and vascular implant and graft, unspecified; Z82.49 Family history of ischemic heart disease and other diseases of the circulatory system; Z80.0 Family history of malignant neoplasm of digestive organs; Z80.1 Family history of malignant neoplasm of trachea, bronchus and lung; Z80.8 Family history of malignant neoplasm of other organs or systems; Z80.3 Family history of malignant neoplasm of breast; Z84.1 Family history of disorders of kidney and ureter; Z82.61 Family history of arthritis
CPT/HCPCS: 36415; 43239; 80053; 85025; 85610; 85730; 88305; J2001 ×2; J3010; J3490 ×2; J7120; 88342

== ENCOUNTER → 2018-07-01 | Outpatient (CLI) | payer MEDICARE, OTHER ==
[2018-07-01 15:55] LABS: BASOPHIL # 0.1 10^3/uL (0.0-0.1); BASOPHIL % 0.7 % (0.0-0.2); EOSINOPHIL # 0.1 10^3/uL (0.0-0.2); EOSINOPHIL % 1.6 % (0.0-5.0); HEMOGLOBIN 12.6 g/dL (12.0-15.0); LYMPHOCYTES # 2.2 10^3/uL (1.0-4.8); LYMPHOCYTES % 31.6 % (24.0-44.0); MEAN CELL HGB 30.9 pg (26-34); MEAN CELL HGB CONCENTRATION 32.6 g/dL (33-37); MEAN CORP VOLUME 94.9 fL (78-100); MEAN PLATELET VOLUME 11.6 fL (7.8-11.0); MONOCYTES # 0.5 10^3/uL (0.3-0.8); MONOCYTES % 6.8 % (5.0-12.0); NEUTROPHIL # 4.1 10^3/uL (1.8-7.7); NEUTROPHILS % 59.2 % (41.0-85.0); RED CELL DISTRIBUTION WIDTH 12.1 % (11.5-14.5); WHITE BLOOD CELL 6.9 10^3/uL (4.5-11.0)
[2018-07-01 16:15] LABS: CALCIUM 9.2 mg/dL (8.4-10.5); CARBON DIOXIDE 29.5 mmol/L (20.0-32)
== END | disposition home or self-care (01) ==
LOC: LAB 15:40
PROVIDERS: ATTEND Internal Medicine Rheumatology
DX: R76.8 Other specified abnormal immunological findings in serum (principal)
CPT/HCPCS: 36415; 80053; 85025; 85651; 86140

== ENCOUNTER → 2018-12-11 | Day surgery (SDC) | payer MEDICARE, OTHER ==
[2018-12-08 13:36] VITALS: BP 128/65
[2018-12-08 15:59] LABS: BASOPHIL # 0.1 10^3/uL (0.0-0.1); BASOPHIL % 0.8 % (0.0-0.2); EOSINOPHIL # 0.1 10^3/uL (0.0-0.2); EOSINOPHIL % 1.1 % (0.0-5.0); HEMOGLOBIN 13.6 g/dL (12.0-15.0); LYMPHOCYTES % 29.8 % (24.0-44.0); MEAN CELL HGB 31.1 pg (26-34); MEAN CELL HGB CONCENTRATION 33.1 g/dL (33-37); MEAN CORP VOLUME 94.1 fL (78-100); MONOCYTES # 0.6 10^3/uL (0.3-0.8); MONOCYTES % 8.5 % (5.0-12.0); NEUTROPHILS % 59.6 % (41.0-85.0); RED CELL DISTRIBUTION WIDTH 12.9 % (11.5-14.5); WHITE BLOOD CELL 6.6 10^3/uL (4.5-11.0)
[2018-12-08 16:17] LABS: CALCIUM 9.8 mg/dL (8.4-10.5); CARBON DIOXIDE 27.2 mmol/L (20.0-32)
--- NOTE | 2018-12-08 17:19 | PCM.EKG ---
[facility] Test Date: 2018-12-08 Test Time: 12:57:06 Pat Name: CLEMENCIA THOMPSON Department: Room: Gender: F 3D Designer: NATHANIEL : [id number] Requested By: OBEY CAIN Order Number: [id number] Reading MD: Mansi Zayas Measurements Intervals [place] Rate: 70 P: 73 SD: 136 QRS: 35 QRSD: 90 T: 52 QT: 390 QTc: 421 Interpretive Statements Normal sinus rhythm Normal ECG Compared to ECG 04/13/2018 21:21:38 No significant changes Electronically Signed On 12-09-2018 10:34:37 CDT by Mansi Zayas Please click the below link to view image of tracing.
[~2018-12-11] VITALS: Ht 160 cm; Wt 48.5 kg
[~2018-12-11] MED LIST changes: +DIPRIVAN IV ONE; +GLUCAGEN ONE; +LACTATED RINGERS 1,000 ML IV SCH; +LIDOCAINE 2% VIAL ONE; +SUBLIMAZE ONE; +WATER ONE
[2018-12-11 06:16] VITALS: BP 151/74
[2018-12-11 08:15] VITALS: BP 116/54
[2018-12-11 08:30] VITALS: BP 120/58
[2018-12-11 08:45] VITALS: BP 113/58
[2018-12-11 08:59] VITALS: BP 115/50
[2018-12-11 09:15] VITALS: BP 112/68
--- NOTE | 2018-12-11 12:32 | OPH ---
DATE OF SURGERY: PREOPERATIVE DIAGNOSES: History of hiatal hernia, dyspepsia, need for screening of the colon. POSTOPERATIVE DIAGNOSES: 1. Gastritis. 2. Small sliding type hiatal hernia. 3. Minimal esophagitis. 4. Diverticular disease of the colon. 5. Check path on polyp. SURGEON: Logan Zamudio DO SCRUBBING MACHINE OPERATOR: OR staff. ANESTHESIA: Total intravenous anesthesia by Rachel Melissa CRNA. PROCEDURES PERFORMED: 1. Esophagogastroduodenoscopy with biopsy. 2. Long flexible colonoscopy to cecum with cold forceps polypectomy in the sigmoid colon. ESTIMATED BLOOD LOSS: 30 mL. COUNTS: At the completion of the case, counts were correct per OR staff. DESCRIPTION OF PROCEDURE: The patient is a very pleasant 83-year-old female known from previous evaluation. Prior to procedure, informed consent was obtained. At time of procedure, she was taken to the operative suite and placed in supine position. After time-out was completed, she was placed in left lateral recumbent position. With adequate sedation, esophagogastroduodenoscope was advanced transorally with pneumoinsufflation distally in second portion of duodenum. Once the duodenum was adequately visualized, camera was slowly withdrawn to facilitate visualization of the duodenal bulb and the pylorus. Pylorus showed gastritis and biopsies were obtained. Retroflexed maneuver was performed. The cardia shows a minimal hiatal hernia, the fundus was grossly normal. Camera was reduced, stomach was decompressed. Scope was slowly withdrawn. Distal esophagus showed some esophagitis. The mid and proximal esophagus were grossly normal. The vocal cords were visualized. The camera was removed. Procedure was discontinued. The patient remained in the OR. Timeout was previously completed. With adequate sedation, rectal exam was performed. There were no masses and noted to have some soft internal and external hemorrhoids. Next, the colonoscope was advanced transanally with some redundancy to the level of the cecum. The quality of prep was adequate. Once cecum was visualized, camera was slowly withdrawn to facilitate visualization of the ascending colon, hepatic flexure, transverse colon, splenic flexure, descending colon, sigmoid. In the descending colon and sigmoid, there was noted to be diverticular disease. The camera was withdrawn to the remainder of the sigmoid to the level of distal sigmoid where a small polyp was identified and was removed with cold forceps. With hemostasis noted, the camera was withdrawn to the remainder of the sigmoid and the rectum to the level of 5 cm, it was retroflexed and reinserted. Anal verge was visualized, within normal limits. Camera was reduced. Colon was decompressed. Colonoscope was removed. The patient tolerated this procedure well. There were no acute complications noted. Logan Zamudio DO DR: BHARAT/jay JOB# [id number] CC: Tayo Joshi NP
== END | disposition home or self-care (01) ==
LOC: SDC 06:20
PROVIDERS: ATTEND Surgery
DX: K63.5 Polyp of colon (principal); K57.30 Diverticulosis of large intestine without perforation or abscess without bleeding; K29.50 Unspecified chronic gastritis without bleeding; K44.9 Diaphragmatic hernia without obstruction or gangrene; K21.0 Gastro-esophageal reflux disease with esophagitis; F41.9 Anxiety disorder, unspecified; M81.0 Age-related osteoporosis without current pathological fracture; E78.00 Pure hypercholesterolemia, unspecified; M19.90 Unspecified osteoarthritis, unspecified site; Z90.710 Acquired absence of both cervix and uterus; Z98.890 Other specified postprocedural states; Z88.8 Allergy status to other drugs, medicaments and biological substances; Z98.41 Cataract extraction status, right eye; Z96.1 Presence of intraocular lens; Z80.1 Family history of malignant neoplasm of trachea, bronchus and lung; Z80.3 Family history of malignant neoplasm of breast; Z80.0 Family history of malignant neoplasm of digestive organs; Z82.61 Family history of arthritis; Z82.49 Family history of ischemic heart disease and other diseases of the circulatory system; Z79.899 Other long term (current) drug therapy
CPT/HCPCS: 36415; 43239; 45380; 80053; 85025; 85610; 85730; 88305 ×2; 93005; J1610; J2001; J3010; J3490

== ENCOUNTER → 2019-05-12 | Outpatient (CLI) | payer MEDICARE, OTHER ==
[~2019-05-12] MED LIST changes: +CYAN-26 PO; -CYAN10005 PO; -DIPRIVAN IV ONE; -GLUCAGEN ONE; -IBAN150T PO; +IBAN150T15 PO; -LACTATED RINGERS 1,000 ML IV SCH; -LIDOCAINE 2% VIAL ONE; -SUBLIMAZE ONE; -WATER ONE
--- NOTE | 2019-05-12 17:38 | DIREP ---
PROCEDURE:XRAY RIBS 3VWS-RT COMPARISON:[facility], CR, XRAY CHEST SINGLE VW, 04/13/2018, 09:07 PM. [facility], CR, XRAY CHEST SINGLE VW, 12/10/2017, 11:22 PM. INDICATIONS:R07.81 PLEURODYNIA FINDINGS: RIBS:No fracture. OTHER:No additional findings. CONCLUSION:Normal examination. Dictated by: Tayo Villegas M.D. on 05/12/2019 at 05:32 PM
== END | disposition home or self-care (01) ==
LOC: RAD 14:57
PROVIDERS: ATTEND Nurse Practitioner Family
DX: R07.81 Pleurodynia (principal)
CPT/HCPCS: 71100-RT

== ENCOUNTER → 2019-07-17 | Outpatient (CLI) | payer MEDICARE, OTHER | END | disposition home or self-care (01) | LOC: LAB 12:54 | PROVIDERS: ATTEND Nurse Practitioner Adult Health | DX: N39.0 Urinary tract infection, site not specified (principal) | CPT/HCPCS: 87086 ==

== ENCOUNTER → 2021-01-08 | Outpatient (CLI) | payer MEDICARE, OTHER ==
[~2021-01-08] MED LIST changes: +MULT-419 PO; -MULT1TAB52 PO
--- NOTE | 2021-01-08 11:28 | DIREP ---
PROCEDURE:XRAY ESOPHAGUS COMPARISON:None. INDICATIONS:R10.13 EPIGASTRIC PAIN;1.3MIN, 12.28MGY, 9IMAGES TECHNIQUE:The patient swallowed barium and effervescent material under fluoroscopic observation of the esophagus, stomach, and proximal small bowel. Multiple spot and overhead films were obtained. FINDINGS: ESOPHAGUS:Normal. No stricture or hiatal hernia. OTHER:The patient aspirated during the examination. FLUORO TIME: 1.3 minutes NUMBER OF IMAGES: 9 CONCLUSION: 1. The patient aspirated during the examination. The examination was abbreviated because of the aspiration. 2. No abnormalities in the esophagus. Dictated by: Jesus Westbrook M.D. on 01/08/2021 at 11:19 AM
== END | disposition home or self-care (01) ==
LOC: RAD 10:00
PROVIDERS: ATTEND Nurse Practitioner Family
DX: R10.13 Epigastric pain (principal)
CPT/HCPCS: 74220

== ENCOUNTER → 2021-02-08 | Outpatient (CLI) | payer MEDICARE, OTHER ==
--- NOTE | 2021-02-08 10:51 | DIREP ---
PROCEDURE:Digital Screening Mammogram TECHNIQUE:MLO, CC, and XCCL digital images of each breast are provided. Computer Assisted Detection (CAD) was utilized. COMPARISON:[facility], MAMMO BILATERAL SCREENING, 08/30/2015, 03:26 PM. [facility], MAMMOGRAM SCREENING, 05/10/2011, 08:02 AM. [facility], MAMMO BILATERAL SCREENING WITH CAD, 09/18/2016, 04:21 PM. INDICATIONS:SCREENING BREAST COMPOSITION:Scattered areas fibroglandular density. FINDINGS:There are no grouped microcalcifications, masses, or architectural distortions to suggest malignancy. There is no significant change as compared with the previous examination(s). IMPRESSION:No mammographic evidence of malignancy. RECOMMENDATIONS:Routine Screening Mammography per [employer] guidelines. OVERALL FINAL ASSESSMENT:BI-RADS 1 - Negative Mammogram Note: This facility participates in a mammography screening patient reminder system. Dictated by: Tayo Villegas M.D. on 02/08/2021 at 10:48 AM
--- NOTE | 2021-02-08 12:50 | DIREP ---
PROCEDURE:BONE DENSITY PERIPHERAL COMPARISON: INDICATIONS:OSTEOPOROSIS COMPARISON: FINDINGS: LUMBAR SPINE ALIGNMENT:Normal. SURGERY:No evidence of prior surgery is identified. DISKS:Normal. VERTEBRAE:Normal. LEFT HIP SURGERY:No evidence of prior surgery is identified. LEFT FOREARM: Region BMD(g/cm^2) T-Score Distal 1/3 0.701 -2.1 Ultradistal 0.302 -3.7 Total 0.512 -2.8 SUMMARY Region BMD(g/cm^2) T-Score Classification Femoral Neck(Left) 0.756 -2.0 Osteopenia Total Hip(Left) 0.701 -2.4 Osteopenia Femoral Neck(Right) 0.802 -1.7 Osteopenia Total Hip(Right) 0.714 -2.3 Osteopenia CONCLUSION: 1. Osteopenia of the left femoral neck. 2. Osteopenia of the left hip overall. 3. Osteopenia of the right femoral neck. 4. Osteopenia of the right hip overall. 5. Osteoporosis of the left forearm overall. 6. Based on the [facility] FRAX study, the patient's 10-year probability of a major osteoporotic fracture (clinical spine, forearm, hip or shoulder) is 12.7%, and the 10-year probability of a hip fracture is 4.3%. Dictated by: Jesus Westbrook M.D. on 02/08/2021 at 12:44 PM
== END | disposition home or self-care (01) ==
LOC: RAD 09:15
PROVIDERS: ATTEND Nurse Practitioner Family
DX: Z12.31 Encounter for screening mammogram for malignant neoplasm of breast (principal); M85.88 Other specified disorders of bone density and structure, other site; M81.8 Other osteoporosis without current pathological fracture
CPT/HCPCS: 77067; 77080

== ENCOUNTER 2021-12-30 19:09 | Emergency (ER) | payer MEDICARE, OTHER ==
[~2021-12-30] VITALS: Ht 162.6 cm; Wt 43.1 kg
[2021-12-30 19:45] VITALS: BP 151/73
--- NOTE | 2021-12-30 20:55 | DIREP ---
PROCEDURE:XRAY KNEE 2 VWS-RT COMPARISON:None. INDICATIONS:KNEE PAIN FINDINGS: BONES:Hairline transverse lucency in the lower anterior patella on the lateral image. JOINTS:Normal. SOFT TISSUES:Normal. OTHER:No additional findings. CONCLUSION:Hairline transverse lucency in the lower anterior patella may represent a fracture. Please correlate with patient's site of pain. Dictated by: Jesus Westbrook M.D. on 12/30/2021 at 08:52 PM
--- NOTE | 2021-12-30 21:06 | DIREP ---
PROCEDURE:XRAY RIBS W/PA CHEST 3VWS-LT COMPARISON:None. INDICATIONS:LEFT RIB PAIN TECHNIQUE:PA chest and 2 view of the left ribs FINDINGS: Left RIBS:Fracture of the left 4th rib laterally with displacement by nearly 1 bone width. LUNGS/PLEURA: No significant pulmonary parenchymal abnormalities. CARDIAC: Normal size cardiac silhouette and normal vascularity. MEDIASTINUM: Calcification in the aortic arch. BONES: Normal. OTHER: No additional findings. CONCLUSION:Fracture of the left 4th rib laterally. Dictated by: Jesus Westbrook M.D. on 12/30/2021 at 08:59 PM
[2021-12-30] MEDS ORDERED: MORPHINE SULFATE IM STA (21:42)
[2021-12-30] MEDS ORDERED: MORPHINE SULFATE ONE (21:56)
--- NOTE | 2021-12-30 22:03 | ER.PDOC ---
General Chief Complaint: Requesting Medical Care Stated Complaint: RIGHT KNEE and LEFT CHESTWALL PAIN Time seen by MD: 20:45 Source: patient Exam Limitations: no limitations History of Present Illness Initial Comments Left rib and right knee pain status post fall. Patient lost her balance. She denies passing out. She also refused hitting her head. No headache or loss of consciousness. No neck pain. Occurred: this evening Where: home Severity: moderate Injuries/Pain Location: chest, lower extremity Context: Lost Balance Loss of Consciousness: No Loss of Consciousness Associated Symptoms: denies symptoms Allergies: Coded Allergies: tramadol (Verified Allergy, Severe, Nausea, 05/05/18) Antihistamines - Alkylamine (Unverified Allergy, Unknown, MAKE FEEL ILL, 05/05/18) MEDS Reported Medications Cyanocobalamin (Vitamin B-12) (VITAMIN B-12) 1,000 Mcg Tablet, 1 TAB PO DAILY, #30 TAB 2 Refills 05/05/18 Methylcellulose (FIBER) 500 Mg Tablet, 500 MG PO DAILY24, TABLET 05/05/18 Vitamin E Mixed (VITAMIN E) 100 Unit Tablet, 100 UNIT PO DAILY24, TABLET 05/05/18 Flaxseed Oil (FLAX SEED OIL) 1,000 Mg Capsule, 1000 MG PO DAILY24, CAPSULE 05/05/18 Ascorbic Acid (VITAMIN C) 500 Mg Tablet.er, 500 MG PO DAILY24 05/05/18 Cholecalciferol (Vitamin D3) (VITAMIN D-3) 2,000 Unit Capsule, 2000 UNIT PO DAILY24, CAPSULE 05/05/18 Multivitamin (MULTIVITAMINS) 1 Each Tablet, 1 TAB PO DAILY, #90 TAB 3 Refills 05/05/18 Famotidine (PEPCID) 20 Mg Tablet, 2 TAB PO DAILY24, #60 TAB 3 Refills 05/05/18 Calcium Carb & Cit/Vitamin D3 (CITRACAL + D ER TABLET) 1 Each Tablet.er, 1 EACH PO BID 05/05/18 Ibandronate Sodium (BONIVA) 150 Mg Tablet, 150 MG PO monthly, TABLET 12/11/17 Pregabalin (LYRICA) 75 Mg Capsule, 75 MG PO HS, CAPSULE 05/03/15 Lorazepam (ATIVAN) 0.5 Mg Tablet, 0.5 MG PO TID, TABLET 05/03/15 Past Medical History Medical History: no pertinent history, other Surgical History: back, hysterectomy, shoulder Family History Significant Family History: no pertinent family hx Social History Smoking: non-smoker Alcohol Use: none Drug Use: none Review of Systems Constitutional: no symptoms reported Respiratory: no symptoms reported Cardiovascular: see HPI Gastrointestinal: no symptoms reported Genitourinary: no symptoms reported Musculoskeletal: see HPI All Other Systems: Reviewed and Negative Physical Exam General Appearance: No Apparent Distress, WD/WN Head: No Evidence of Injury Eyes: bilateral eye normal inspection Ears, Nose, Mouth, Throat: Hearing Grossly Normal Neck: Non-Tender, Normal Alignment, Nexus criteria neg, Normal Inspection Cardiovascular/Respiratory: Regular Rate, Rhythm, No M/R/G, Normal Peripheral Pulses, No JVD, Normal Breath Sounds, No Respiratory Distress, Rib Tenderness (mid left lateral chest wall) Gastrointestinal: Normal Bowel Sounds, No Organomegaly, No Pulsatile Mass, Non Tender, Soft Back: Normal Inspection, No CVA Tenderness, No Vertebral Tenderness Extremities: Tenderness (right knee) Neurologic/Psychiatric: cloth measurer II-XII NML as Tested, No Motor/Sensory Deficits, Alert, Normal Mood/Affect, Oriented x 3 [place] Coma Score Best Eye Response: (4) Open Spontaneously Best Verbal Response: (5) Oriented Best Motor Response: (6) Obeys Commands Results/Orders Results/Orders Orders - CHRISTIN GURROLA MD Xr Knee Rt 2v (12/30/21 19:53) Xr Ribs Lt W/Cxr (12/30/21 19:54) Vital Signs Date Time Temp Pulse Resp B/P (MAP) Pulse Ox O2 Delivery O2 Flow Rate FiO2 12/30/21 19:45 97.9 90 18 98 12/30/21 19:45 97.9 90 18 12/30/21 19:45 97.9 90 18 151/73 (99) 98 Room Air Progress Progress Left rib series shows fracture of the left fourth rib laterally. X-rays of right knee shows hairline transverse lucency in the lower anterior patella may represent a fracture. That is where patient has tenderness. Patient received morphine 2mg IM. She is discharged home with a knee immobilizer. ER DEPART Departure Time of Disposition: 22:03 Disposition: 01 HOME / SELF CARE / HOMELESS Impression: Primary Impression: Patellar fracture Additional Impression: Left rib fracture Condition: Improved Referrals: PCP,UNKNOWN (PCP) PRIMARY CARE PROVIDER Additional Instructions: Ice right knee 3 times a day for 3 days Tylenol #3 Ibuprofen Follow-up with Dr. Salvador in 1 to 2 days, call for appointment Return to ED if worsening or concerns Duration or Time Spent with Pa: 10 min Problem Qualifiers Primary Impression: Patellar fracture Encounter type: initial encounter Fracture type: closed Fracture morphology: unspecified fracture morphology Fracture alignment: nondisplaced Laterality: right Qualified Codes: S82.001A - Unspecified fracture of right patella, initial encounter for closed fracture Additional Impression: Left rib fracture Encounter type: initial encounter Rib fracture type: single rib Fracture type: closed Qualified Codes: S22.32XA - Fracture of one rib, left side, initial encounter for closed fracture CHRISTIN GURROLA MD Dec 30, 2021 22:03
== END 2021-12-30 22:16 | disposition home or self-care (01) ==
LOC: ER 19:09
DX: S22.32XA Fracture of one rib, left side, initial encounter for closed fracture (principal); S82.001A Unspecified fracture of right patella, initial encounter for closed fracture; W19.XXXA Unspecified fall, initial encounter; Y93.89 Activity, other specified; Y92.009 Unspecified place in unspecified non-institutional (private) residence as the place of occurrence of the external cause; Y99.8 Other external cause status; Z88.5 Allergy status to narcotic agent; Z88.8 Allergy status to other drugs, medicaments and biological substances; Z90.710 Acquired absence of both cervix and uterus
CPT/HCPCS: 29505; 73560; 96372; 99284; 71101-LT

== ENCOUNTER → 2022-02-05 | Outpatient (CLI) | payer MEDICARE, OTHER ==
--- NOTE | 2022-02-05 10:47 | DIREP ---
PROCEDURE:MRI SPINE THORACIC W/O COMPARISON:None. INDICATIONS:PAIN TECHNIQUE:A variety of imaging planes and parameters were utilized for visualization of suspected pathology. Images were performed without contrast. FINDINGS: VERTEBRAE:Acute T11 compression fracture with less 25% height loss from superior endplate and no retropulsion. ALIGNMENT:Normal. DISCS:Minimal posterior disc bulge T10-T11 with mild narrowing of the spinal canal. SPINAL CORD/CONUS:Normal. PARASPINAL AREA:Normal. CONCLUSION: 1. Acute T11 compression fracture with less than 25% height loss from the superior endplate . No retropulsion. 2. Mild spinal canal narrowing from posterior disc bulge T10-T11 Dictated by: Orlando Morejon DO on 02/05/2022 at 10:44 AM
== END | disposition home or self-care (01) ==
LOC: RAD 09:04
PROVIDERS: ATTEND Orthopaedic Surgery
DX: S22.089A Unspecified fracture of T11-T12 vertebra, initial encounter for closed fracture (principal); M48.04 Spinal stenosis, thoracic region; M54.6 Pain in thoracic spine; X58.XXXA Exposure to other specified factors, initial encounter; Y93.89 Activity, other specified; Y92.89 Other specified places as the place of occurrence of the external cause; Y99.8 Other external cause status
CPT/HCPCS: 72146

== ENCOUNTER 2022-05-31 19:48 | Emergency (ER) | payer MEDICARE, OTHER ==
[~2022-05-31] VITALS: Ht 162.6 cm; Wt 50.3 kg
[~2022-05-31 19:48] MED LIST changes: +BOOSTRIX TDAP IM ONE
--- NOTE | 2022-05-31 19:55 | NUR ---
ARRIVAL 86 Y/O FEMALE PRESENTS TO ED S/P FALL TODAY C/O PAIN TO RIGHT HIP NO SHORTENING OR OUTWARD ROTATION, NO DEFORMITY, NEG [place].
[2022-05-31 20:08] VITALS: BP 153/73
--- NOTE | 2022-05-31 20:27 | NUR ---
FAMILY PT FAMILY REPORTS PT HIT EAD DENIES LOC, 1 CM SCTRATCH TO RIGHT PARITAL LOBE NO ACTIVE BLEEDING. PERRLA.
--- NOTE | 2022-05-31 20:42 | ER.PDOC ---
General Chief Complaint: Requesting Medical Care Stated Complaint: FALL Time seen by MD: 20:41 Source: patient, other (attendant) Exam Limitations: other (a little forgetfulness going on, longstanding) History of Present Illness Initial Comments 86 yo F tripped/had a purely mechanical fall onto her R hip today, and also hit her head causing a very small abrasion on the R occiput. Has some pain in the hip region, none really in the head. No neck or back pain. Surgical history recently has included cement procedure presumably stabilizing a lumbar vertebra, and hurting her R patella a few months back as well. No other significant complaints. Occurred: just prior to arrival Injuries/Pain Location: head, lower extremity Allergies: Coded Allergies: tramadol (Verified Allergy, Severe, Nausea, 05/05/18) Antihistamines - Alkylamine (Unverified Allergy, Unknown, MAKE FEEL ILL, 05/05/18) MEDS Reported Medications Cyanocobalamin (Vitamin B-12) (VITAMIN B-12) 1,000 Mcg Tablet, 1 TAB PO DAILY, #30 TAB 2 Refills 05/05/18 Methylcellulose (FIBER) 500 Mg Tablet, 500 MG PO DAILY24, TABLET 05/05/18 Vitamin E Mixed (VITAMIN E) 100 Unit Tablet, 100 UNIT PO DAILY24, TABLET 05/05/18 Flaxseed Oil (FLAX SEED OIL) 1,000 Mg Capsule, 1000 MG PO DAILY24, CAPSULE 05/05/18 Ascorbic Acid (VITAMIN C) 500 Mg Tablet.er, 500 MG PO DAILY24 05/05/18 Cholecalciferol (Vitamin D3) (VITAMIN D-3) 2,000 Unit Capsule, 2000 UNIT PO DAILY24, CAPSULE 05/05/18 Multivitamin (MULTIVITAMINS) 1 Each Tablet, 1 TAB PO DAILY, #90 TAB 3 Refills 05/05/18 Famotidine (PEPCID) 20 Mg Tablet, 2 TAB PO DAILY24, #60 TAB 3 Refills 05/05/18 Calcium Carb & Cit/Vitamin D3 (CITRACAL + D ER TABLET) 1 Each Tablet.er, 1 EACH PO BID 05/05/18 Ibandronate Sodium (BONIVA) 150 Mg Tablet, 150 MG PO monthly, TABLET 12/11/17 Pregabalin (LYRICA) 75 Mg Capsule, 75 MG PO HS, CAPSULE 05/03/15 Lorazepam (ATIVAN) 0.5 Mg Tablet, 0.5 MG PO TID, TABLET 05/03/15 Past Medical History Medical History: no pertinent history Surgical History: back, tonsillectomy, other (back and knee procedures) Family History Significant Family History: no pertinent family hx Social History Smoking: non-smoker Alcohol Use: none Drug Use: none Reviewed Nursing Reviewed: Vital Signs, Abn. Noted, Nursing Assessment Review of Systems Constitutional: no symptoms reported Eyes: no symptoms reported Ears, Nose, Mouth, Throat: no symptoms reported Respiratory: no symptoms reported Cardiovascular: no symptoms reported Gastrointestinal: no symptoms reported Genitourinary: no symptoms reported Musculoskeletal: denies back pain; joint pain (R hip has somewhat nonspecific pain) Skin: no symptoms reported Psychiatric/Neurological: no symptoms reported All Other Systems: Reviewed and Negative Physical Exam General Appearance: No Apparent Distress Head: Other (small abrasion R temporal region) Eyes: bilateral eye normal inspection Ears, Nose, Mouth, Throat: Other (rather hard of hearing) Neck: Non-Tender, Normal Alignment, Full Range of Motion Cardiovascular/Respiratory: Regular Rate, Rhythm Gastrointestinal: Normal Bowel Sounds Back: Normal Inspection Extremities: Other (somewhat nonspecific pain R hip) Neurologic/Psychiatric: No Motor/Sensory Deficits Skin: Other (small abrasion on scalp as above) Results/Orders Results/Orders Orders - SHIRA HENRIQUEZ MD Xr Hip Rt 2v W/Pelvis (05/31/22 20:21) Ct Head Wo Contrast (05/31/22 20:25) Diph,Pertuss(Acell),Tet Vac/Pf (Boostrix (05/31/22 22:00) Vital Signs Date Time Temp Pulse Resp B/P (MAP) Pulse Ox O2 Delivery O2 Flow Rate FiO2 05/31/22 20:08 98.3 85 20 05/31/22 20:08 98.3 85 20 153/73 (99) 93 Room Air* 0 21 05/31/22 20:08 98.3 [address] and R hip are negative for acute pathology. OK for outpatient management. We will update TDAP. ER DEPART Departure Time of Disposition: 21:57 Disposition: 01 HOME / SELF CARE / HOMELESS Impression: Primary Impression: Fall Additional Impressions: Hip pain Minor head injury without loss of consciousness Condition: Stable Patient Instructions: Head Injury, Adult, [id number], Hip Pain Referrals: PCP,UNKNOWN (PCP) PRIMARY CARE PROVIDER Duration or Time Spent with Pa: 10 Problem Qualifiers SHIRA HENRIQUEZ MD May 31, 2022 20:42
--- NOTE | 2022-05-31 20:44 | DIREP ---
PROCEDURE:XRAY HIP MIN 2VW-RT COMPARISON:None. INDICATIONS:FALL WITH RIGHT HIP PAIN FINDINGS: BONES:No fracture. Posterior fixation hardware within the lumbosacral spine. JOINTS:Mild degenerative change. SOFT TISSUES:Normal. OTHER:No additional findings. CONCLUSION:Postsurgical and mild degenerative change without acute bony abnormality. Dictated by: Preston Russell M.D. on 05/31/2022 at 08:41 PM
--- NOTE | 2022-05-31 21:00 | DIREP ---
PROCEDURE:CT HEAD OR BRAIN W/O CONTRAST COMPARISON:None. INDICATIONS:FALL WITH HEAD INJURY TECHNIQUE:CT images were created without intravenous contrast. FINDINGS: VENTRICLES:The ventricles are normal in size and configuration. CEREBRUM:Moderate foci of diminished attenuation in the supratentorial white matter consistent with moderate leukoaraiosis. CEREBELLUM:Negative. BRAINSTEM:Negative. BASAL CISTERNS:Negative. HEMORRHAGE (Vol L*W*H*.52):No MASS LESION:No ACUTE INFARCT:No SKULL:Normal. SINUSES:Normal. OTHER:None CONCLUSION:Moderate chronic small vessel ischemic change. No acute intracranial process. Dictated by: Preston Russell M.D. on 05/31/2022 at 08:58 PM
[2022-05-31] MEDS ORDERED: BOOSTRIX IM ONE (22:00)
== END 2022-05-31 22:10 | disposition home or self-care (01) ==
LOC: ER 19:48
DX: S00.81XA Abrasion of other part of head, initial encounter (principal); M25.551 Pain in right hip; W01.0XXA Fall on same level from slipping, tripping and stumbling without subsequent striking against object, initial encounter; Y93.89 Activity, other specified; Y92.89 Other specified places as the place of occurrence of the external cause; Y99.8 Other external cause status; Z88.5 Allergy status to narcotic agent; Z88.8 Allergy status to other drugs, medicaments and biological substances
CPT/HCPCS: 70450; 73502; 90471; 90715; 99284

== ENCOUNTER → 2022-06-04 | Outpatient (CLI) | payer MEDICARE, OTHER ==
[~2022-06-04] MED LIST changes: -BOOSTRIX TDAP IM ONE
--- NOTE | 2022-06-04 13:10 | DIREP ---
PROCEDURE:XRAY SPINE LUMBAR 2-3 VWS COMPARISON:[facility], CR, XRAY SPINE LUMBAR 2-3 VWS, 04/17/2022, 11:58 AM. INDICATIONS:M54.41 LUMBAGO WITH SCIATICA RIGHT SIDE TECHNIQUE:AP, lateral, and coned down lateral views of the lumbar spine are provided. FINDINGS: ALIGNMENT:Normal. VERTEBRAE:Redemonstrated posterior lumbar interbody fusion changes L4 through S1 with stable grade 1 anterolisthesis L5 on S1. No visualized hardware complication or significant interval change. Evidence of previous kyphoplasty at T11, similar to prior exam DISK SPACES:Normal disc spacing CONCLUSION:Degenerative and postsurgical changes without visualized complication or significant interval change. Dictated by: Orlando Morejon DO on 06/04/2022 at 01:07 PM
--- NOTE | 2022-06-04 13:13 | DIREP ---
PROCEDURE:XRAY SPINE THORACIC 3 VWS COMPARISON:[facility], CR, XRAY SPINE THORACIC 2 VWS, 04/17/2022, 11:58 AM. INDICATIONS:M54.6 PAIN IN THORACIC SPINE TECHNIQUE:AP & lateral views of the thoracic spine and a swimmer's view of the cervicothoracic junction are provided. FINDINGS: ALIGNMENT:Mild increased kyphosis.. VERTEBRAE:Multilevel anterior disc space narrowing, most pronounced about the mid to upper thoracic spinal levels. Chronic compression deformity of T11 status post vertebroplasty. No acute fracture.. OTHER:Normal. CONCLUSION:Degenerative changes without significant interval change Dictated by: Orlando Morejon DO on 06/04/2022 at 01:10 PM
== END | disposition home or self-care (01) ==
LOC: RAD 11:09
PROVIDERS: ATTEND Nurse Practitioner Family
DX: M47.814 Spondylosis without myelopathy or radiculopathy, thoracic region (principal); M47.817 Spondylosis without myelopathy or radiculopathy, lumbosacral region; M48.04 Spinal stenosis, thoracic region; M40.204 Unspecified kyphosis, thoracic region
CPT/HCPCS: 72072; 72100

== ENCOUNTER → 2022-06-11 | Outpatient (CLI) | payer MEDICARE, OTHER ==
--- NOTE | 2022-06-12 17:09 | DIREP ---
PROCEDURE:XRAY HIP MIN 2VW-RT COMPARISON:[facility], , XRAY HIP MIN 2VW-RT, 05/31/2022, 08:24 PM. INDICATIONS:M25.551 PAIN IN RIGHT HIP FINDINGS: BONES:Small acetabular osteophyte formation. No visible displaced fracture. Ilioischial and iliopectineal lines are intact. Postoperative fusion hardware lumbosacral spine. JOINTS:No dislocation SOFT TISSUES:Large amount of stool in the colon OTHER:No additional findings. CONCLUSION:Mild hip arthropathy. Postop changes. Dictated by: Brendan Pereira M.D. on 06/12/2022 at 05:07 PM
== END | disposition home or self-care (01) ==
LOC: RAD 15:16
PROVIDERS: ATTEND Nurse Practitioner Family
DX: M12.851 Other specific arthropathies, not elsewhere classified, right hip (principal); M43.27 Fusion of spine, lumbosacral region
CPT/HCPCS: 73502

== ENCOUNTER → 2022-07-18 | Outpatient (CLI) | payer MEDICARE, OTHER ==
--- NOTE | 2022-07-18 16:07 | DIREP ---
PROCEDURE:MRI - THORACIC SPINE WITHOUT CONTRAST COMPARISON:[facility], MR, MRI SPINE THORACIC W/O, 02/05/2022, 08:16 AM. INDICATIONS:PAIN IN THORACIC SPINE TECHNIQUE:A variety of imaging planes and parameters were utilized for visualization of suspected pathology about the thoracic spine. Images were performed without gadolinium contrast. FINDINGS VERTEBRAE:Old fracture and vertebroplasty at T11 with mild to moderate anterior wedging. 8 mm hemangioma at T8. Mild facet arthropathy at T10-11 ALIGNMENT:Exaggerated kyphosis at T11 secondary to old fracture. No acute fracture. Remaining vertebral body heights are within normal limits. DISCS:Small dorsal disc at T10-11 with mild flattening of the thecal sac. SPINAL CORD/CONUS:Normal caliber, course, and signal. PARASPINAL AREA:No gross deformity in the adjacent soft tissues. CONCLUSION:Old fracture and vertebroplasty at T11. No new fracture. Mild degenerative disc disease at T10-11. Mild facet arthropathy at T10-11. Dictated by: Brendan Pereira M.D. on 07/18/2022 at 04:00 PM
--- NOTE | 2022-07-18 16:26 | DIREP ---
PROCEDURE:MRI SPINE LUMBAR W/O COMPARISON:[facility], CR, XRAY SPINE LUMBAR 2-3 VWS, 06/04/2022, 11:30 AM. INDICATIONS:PAIN TECHNIQUE:A comprehensive examination was performed utilizing a variety of imaging planes and imaging parameters to optimize visualization of suspected pathology. Images were performed without intravenous gadolinium contrast. FINDINGS: ALIGNMENT:Curvature and alignment are maintained. VERTEBRA:Posterior pedicle screws and vertical rods at S1, L5, L4. L4 and L5 laminectomy changes. CORD/CAUDA EQUINA:Normal size, contour, and signal intensity. PARASPINAL AREA:Normal with no visible mass. OTHER:Bilateral vertical sacral fractures with edema may be insufficiency fractures. Correlate with any recent trauma. LUMBAR DISC LEVELS T12-L1:Mild facet arthropathy and thickening of the ligamentum flavum without foraminal or spinal stenosis. L1-L2:Mild facet arthropathy and thickening of the ligamentum flavum without foraminal or spinal stenosis. L2-L3:Mild facet arthropathy and thickening of the ligamentum flavum. Small dorsal bulge. Small superimposed left foraminal broad-based protrusion with mild left foraminal stenosis. Right foramen and spinal canal within normal limits. L3-L4:Moderate facet arthropathy. Thickened ligamentum flavum. Moderate dorsal bulge. Moderate foraminal stenosis. Mild spinal stenosis. L4-L5:Disc space fusion device. No foraminal or spinal stenosis. L5-S1:Disc space fusion device. No foraminal or spinal stenosis peer CONCLUSION: 1. L4-L5 laminectomies. 2. Posterior transpedicular screws and vertical rods L4-S1. 3. L3-4 degenerative disc disease is moderate foraminal stenosis and mild spinal stenosis. 4. Mild degenerative disc disease and arthropathy elsewhere. 5. Bilateral vertical sacral fractures may be insufficiency fractures. There is edema associated with the marrow space consistent with recent process. Dictated by: Brendan Pereira M.D. on 07/18/2022 at 04:21 PM
== END | disposition home or self-care (01) ==
LOC: RAD 12:27
DX: M51.37 Other intervertebral disc degeneration, lumbosacral region (principal); M48.07 Spinal stenosis, lumbosacral region; M96.1 Postlaminectomy syndrome, not elsewhere classified; M51.34 Other intervertebral disc degeneration, thoracic region; M47.814 Spondylosis without myelopathy or radiculopathy, thoracic region; M51.84 Other intervertebral disc disorders, thoracic region
CPT/HCPCS: 72146; 72148

== ENCOUNTER → 2022-08-28 | Outpatient (CLI) | payer MEDICARE, OTHER ==
[2022-08-28 11:25] LABS: BASOPHIL # 0.1 10^3/uL (0.0-0.1); BASOPHIL % 1.3 % (0.0-0.2); EOSINOPHIL # 0.1 10^3/uL (0.0-0.2); EOSINOPHIL % 2.1 % (0.0-5.0); LYMPHOCYTES # 1.69 10^3/uL1 (1.0-4.8); LYMPHOCYTES % 25.2 % (24.0-44.0); MONOCYTES # 0.6 10^3/uL (0.3-0.8); MONOCYTES % 8.5 % (5.0-12.0); NEUTROPHIL # 4.2 10^3/uL (1.8-7.7); NEUTROPHILS % 62.8 % (41.0-85.0); RED CELL DISTRIBUTION WIDTH 12.9 % (11.5-14.5)
[2022-08-28 11:29] LABS: BILIRUBIN,URINE NEGATIVE (NEGATIVE); UROBILINOGEN,URINE 0.2 E.U./dL (0.2)
[2022-08-28 11:30] LABS: CARBON DIOXIDE 28.1 mmol/L (20.0-32)
== END | disposition home or self-care (01) ==
LOC: LAB 10:55
DX: Z01.89 Encounter for other specified special examinations (principal); N39.0 Urinary tract infection, site not specified
CPT/HCPCS: 36415; 80048; 81001; 85025; 85610; 85730; 87077; 87086; 87186